=== PATIENT | female | born 1970 | race Caucasian/White ===

== ENCOUNTER 2021-07-06 11:26 | Emergency (ER) | payer OTHER, SELFPAY ==
[2021-07-06 11:42] VITALS: BP 125/72; PULSE 87; RESP 20; TEMP 36.2; O2SAT 97
[2021-07-06 12:15] LABS: COVID19 -Nasal RAPID Negative (Negative)
--- NOTE | 2021-07-06 13:36 | ED_ITS ---
HPI - URI/Sore Throat <Link Leung PA-C - Last Filed: 07/06/21 18:50> General Chief Complaint: Upper Respiratory Symptoms Stated Complaint: congestion/ear ache x 2 days Time Seen by Provider: 07/06/21 13:09 Source: patient Mode of arrival: Ambulatory History of Present Illness HPI Narrative: Patient is a 50-year-old female presenting to the emergency department today for evaluation of nasal congestion, cough, and ear pain for the past 2 days. Of note, patient has grandchildren at home that have been experiencing similar symptoms. Patient rates her left ear pain a 5/10 in intensity, she denies that pain it radiates elsewhere. No fever, chills, chest pain, shortness of breath, abdominal pain, nausea, vomiting, diarrhea, dysuria, hematuria reported. No other concerns are voiced at this time. Related Data Allergies Allergy/AdvReac Type Severity Reaction Status Date / Time No Known Drug Allergies Allergy Verified 07/06/21 11:45 Review of Systems <Link Leung PA-C - Last Filed: 07/06/21 18:50> Constitutional Constitutional: Denies chills, Denies fatigue, Denies fever(s), Denies frequent falls, Denies lethargy and Denies weakness ENT Ears, Nose, Mouth, and Throat: Denies change in voice, Denies dizziness, Reports otalgia (Left ear), Reports nasal congestion, Denies neck pain, Denies sore throat and Denies throat swelling Cardiovascular Cardiovascular: Denies chest pain, Denies irregular heart rhythm, Denies lightheadedness, Denies palpitations, Denies dyspnea, Denies dyspnea on exertion and Denies orthopnea Respiratory Respiratory: Reports cough, Denies dyspnea, Denies dyspnea on exertion and Denies wheezing Gastrointestinal Gastrointestinal: Denies abdominal pain, Denies change in bowel habits, Denies diarrhea, Denies nausea and Denies vomiting Genitourinary Genitourinary: Denies hematuria, Denies flank pain, Denies urinary incontinence and Denies urinary urgency Musculoskeletal Musculoskeletal: Denies neck pain Integumentary/Breasts Skin/Breast: Denies pruritus, Denies erythema, Denies rash and Denies wounds Neurologic Neurologic: Denies dizziness, Denies frequent falls and Denies weakness Endocrine Endocrine: Denies fatigue and Denies palpitations Allergic/Immunologic Allergic/Immunologic: Denies throat swelling and Denies wheezing Patient History <Link Leung PA-C - Last Filed: 07/06/21 18:50> Social History Smoking Status: Never smoker Smoking Status: Never smoker alcohol intake frequency: 0-2 drinks per day Substance Use Type: does not use Exam <Link Leung PA-C - Last Filed: 07/06/21 18:50> Narrative Exam Narrative: GENERAL: 50 year old patient appears stated age. Well-developed patient, in no acute distress. HEAD: Atraumatic. Normocephalic. EYES: Pupils equal round and reactive. Extraocular motions intact. No scleral icterus. No injection or drainage. ENT: Nose without bleeding, purulent drainage. Throat without erythema, tonsillar hypertrophy or exudate. Airway patent. Tympanic membranes clear bilaterally, no swelling, erythema appreciated. External auditory canal clear. NECK: Trachea midline. Non tender CARDIOVASCULAR: Regular rate and rhythm without murmurs, gallops, or rubs. RESPIRATORY: Clear to auscultation. Breath sounds equal bilaterally. No wheezes, rales, or rhonchi. GASTROINTESTINAL: Abdomen soft, non-tender, nondistended. EXTREMITIES: No edema or joint tenderness. BACK: Nontender without deformity or crepitance. No flank tenderness. NEURO: AOx3. SKIN: No rash or erythema of visible areas Initial Vital Signs Initial Vital Signs: Vital Signs Temperature 97.1 F L 07/06/21 11:42 Pulse Rate 87 07/06/21 11:42 Respiratory Rate 20 07/06/21 11:42 Blood Pressure 125/72 07/06/21 11:42 Pulse Oximetry 97 07/06/21 11:42 <Daniel Sin DO - Last Filed: 07/07/21 08:34> Initial Vital Signs Initial Vital Signs: Vital Signs Temperature 97.1 F L 07/06/21 11:42 Pulse Rate 87 07/06/21 11:42 Respiratory Rate 20 07/06/21 11:42 Blood Pressure 125/72 07/06/21 11:42 Pulse Oximetry 97 07/06/21 11:42 Course <Link Leung PA-C - Last Filed: 07/06/21 18:50> Course Course Narrative: COVID-19 swab ordered. Orders Ordered: ED Orders 07/06/21 11:47 COVID19 -Nasal swab/Pre-Proc Stat Vital Signs Vital signs: Vital Signs - 8 hr 07/06/21 11:42 Temperature 97.1 F L Pulse Rate 87 Respiratory Rate 20 Blood Pressure 125/72 Pulse Oximetry 97 <Daniel Sin DO - Last Filed: 07/07/21 08:34> Orders Ordered: ED Orders 07/06/21 11:47 COVID19 -Nasal swab/Pre-Proc Stat Vital Signs Vital signs: Vital Signs - 8 hr 07/06/21 11:42 Temperature 97.1 F L Pulse Rate 87 Respiratory Rate 20 Blood Pressure 125/72 Pulse Oximetry 97 MDM - URI/Sore Throat <Link Leung PA-C - Last Filed: 07/06/21 18:50> Lab Data Labs: Lab Results 07/06/21 Range/Units 11:47 SARS-CoV-2 (PCR) Negative (Negative) MDM Narrative Medical decision making narrative: To consider COVID-19 versus upper respiratory infection versus RSV infection versus viral sinusitis versus bacterial sinusitis. Overall physical examination and history are reassuring. COVID swab returned negative in the emergency department today. Considering the patient has been in contact with her grandchildren who both tested positive for RSV today the patient is likely dealing with a viral upper respiratory infection. Discussed with the patient the importance of symptomatic treatment. At this time she feels comfortable being discharged home with strict return precautions discussed prior to discharge. <Daniel Sin DO - Last Filed: 07/07/21 08:34> Lab Data Labs: Lab Results 07/06/21 Range/Units 11:47 SARS-CoV-2 (PCR) Negative (Negative) Discharge Plan Departure Patient Disposition: Home Clinical Impression: Upper respiratory infection, Acute pain of left ear Instructions: DI for Viral Upper Respiratory Infection -- Adult Activity Restrictions/Additional Instructions: *You have been diagnosed with upper respiratory infection, acute left ear pain *What to do: *Please continue to take your regular medications as directed. [ ] New medication prescriptions sent to your pharmacy: [ ] [ ] New medication written as a paper prescription [X] No new medications given *Please follow up with your primary care provider in 2-3 days, call for an appointment. Let them know you were seen in the Emergency Department and that we ask that you be seen in follow up. We will electronically transmit a record of today's note if your PCP is in our system. *Please use an [id number] nasal decongestant to alleviate congestion and ear pain. *If you do not have a primary care provider please contact the [facility] Resource line at [phone]. They will ask some questions about your medical history and help get you set up with a doctor in the community. *Return to Emergency Department if you should have any new, worsening or concerning symptoms, such as fever greater than 101 F, shaking chills, worsening pain, persistent vomiting or other bothersome symptoms. <Daniel Sin DO - Last Filed: 07/07/21 08:34> Cosign ED Attending Cosignature Attestation: I was immediately available in the department for consultation. This documentation has been reviewed and I agree with assessment and plan. Supervised by Daniel Sin DO
== END 2021-07-06 13:46 | disposition home or self-care (01) ==
PROVIDERS: Emergency Medicine; Emergency Provider Physician Assistant
DX: J06.9 Acute upper respiratory infection, unspecified (principal); H92.02 Otalgia, left ear; Z20.822 Contact with and (suspected) exposure to COVID-19
CPT/HCPCS: 87635; 99281; C9803